=== PATIENT | female | born 1955 | race Caucasian/White ===

== ENCOUNTER 2023-06-13 19:13 | Inpatient (IN) | payer OTHER ==
[2023-06-13 21:10] LABS: #Eosinphils 0.2 10x3/uL (0.0-0.5); #Monocytes 0.4 10x3/uL (0.0-1.1); #Neutrophils 2.7 10x3/uL (1.5-8.4); %Basophils 0.5 % (0.0-2.0); %Eosinophils 3.4 % (0.0-6.0); %Lymphocytes 40.5 % (18.0-47.0); %Monocytes 7.1 % (0.0-10.0); %Neutrophils 48.3 % (40.0-75.0); Hematocrit 30.2 % (34.9-44.5); Hemoglobin 9.3 g/dL (12.0-15.5); Mean Corpuscular HGB CONC 30.8 g/dL (32.0-36.0); Mean Corpuscular Hemoglobin 23.6 pg (27.0-33.0); Mean Corpuscular Volume 76.6 fl (81.6-98.3); Mean Platelet Volume 8.9 fl (7.4-10.4); Platelet Count 313 10x3/uL (150-450); RBC Distribution Width 17.3 % (11.5-14.5); Red Blood Cell (RBC) Count 3.94 10x6/uL (3.90-5.03); White Blood Cell (WBC) Count 5.7 10x3/uL (3.5-10.5)
[2023-06-13 21:16] LABS: ALT (SGPT) 15 U/L (8-55); AST (SGOT) 24 U/L (5-34); Albumin 3.1 g/dL (3.4-4.8); Alkaline Phosphatase 157 U/L (40-110); Anion Gap 13 mmol/L (10-20); BUN (Urea Nitrogen) 6 mg/dL (9.8-20.1); Bilirubin, Total 0.5 mg/dL (0.2-1.2); Calc. Creatinine Clearance 0 mL/min (70-130); Carbon Dioxide 28 mmol/L (23-31); Chloride 104 mmol/L (98-107); Estimated GFR 96; Globulin 3.8 g/dL (2.4-3.5); Glucose 182 mg/dL (80-115); Protein, Total 6.9 g/dL (5.8-8.1); Sodium 142 mmol/L (136-145)
[2023-06-13 21:35] LABS: Potassium 2.5 mmol/L (3.5-5.1)
[2023-06-13] MEDS ORDERED: Magnesium 2 GM/50 ML BAG (IN WATER) ONE (21:50)
[2023-06-13] MEDS ORDERED: Potassium Chloride 20 MEQ TAB ONE (21:51)
[2023-06-13] MEDS ORDERED: NS 0.9% w/ 40 MEQ KCL 1,000 ML IV ONE (22:04)
[2023-06-13 22:11] LABS: Lipase 33 U/L (8-78)
[2023-06-13 22:21] LABS: Magnesium 0.9 mg/dL (1.6-2.6)
[2023-06-13] MEDS ORDERED: Ondansetron ODT 4 MG TAB PO PRN (22:44)
[2023-06-13] MEDS ORDERED: Acetaminophen 650 MG Suppository PR PRN (22:44)
[2023-06-13] MEDS ORDERED: Communication Order-Pharmacy FS ONE (22:44)
[2023-06-13] MEDS ORDERED: Acetaminophen 325 MG TAB PO PRN (22:44)
[2023-06-13] MEDS ORDERED: Ondansetron PF 4 MG/2 ML Vial IVP PRN (22:44)
[2023-06-13] MEDS ORDERED: Glucagon 1 MG/ML KIT IM PRN (23:24)
[2023-06-13] MEDS ORDERED: Dextrose 5% in Water 1,000 ML IV PRN (23:24)
[2023-06-13] MEDS ORDERED: HumaLOG 300 UNITS/3 ML VIAL SC PRN (23:24)
[2023-06-13] MEDS ORDERED: Dextrose 50% Abboject 50 ML SYRINGE SLOW IVP PRN (23:24)
[2023-06-13] MEDS ORDERED: Electrolyte Replacement Protocol 1 EACH FS SCH (23:30)
[2023-06-13] MEDS ORDERED: Potassium Chloride 20 MEQ TAB PO SCH (23:45)
[2023-06-13] MEDS ORDERED: DIFICID 200 MG PO SCH (23:45)
[2023-06-14 03:59] VITALS: BMI 24.5
[2023-06-14] MEDS: Potassium Chloride 20 MEQ in Lactated Ringer's 1,000 ML IV SCH ×3 (04:48→16:35)
[2023-06-14 06:50] LABS: #Eosinphils 0.2 10x3/uL (0.0-0.5); #Monocytes 0.3 10x3/uL (0.0-1.1); #Neutrophils 1.9 10x3/uL (1.5-8.4); %Basophils 0.6 % (0.0-2.0); %Eosinophils 3.7 % (0.0-6.0); %Lymphocytes 48.1 % (18.0-47.0); %Monocytes 6.7 % (0.0-10.0); %Neutrophils 40.5 % (40.0-75.0); Hematocrit 28.3 % (34.9-44.5); Hemoglobin 9.1 g/dL (12.0-15.5); Mean Corpuscular HGB CONC 32.2 g/dL (32.0-36.0); Mean Corpuscular Hemoglobin 24.7 pg (27.0-33.0); Mean Corpuscular Volume 76.9 fl (81.6-98.3); Platelet Count 284 10x3/uL (150-450); RBC Distribution Width 17.7 % (11.5-14.5); Red Blood Cell (RBC) Count 3.68 10x6/uL (3.90-5.03); White Blood Cell (WBC) Count 4.6 10x3/uL (3.5-10.5)
[2023-06-14 07:06] LABS: Anion Gap 14 mmol/L (10-20); BUN (Urea Nitrogen) 5 mg/dL (9.8-20.1); Calc. Creatinine Clearance 101 mL/min (70-130); Calcium 7.8 mg/dL (7.8-10.44); Carbon Dioxide 26 mmol/L (23-31); Chloride 109 mmol/L (98-107); Estimated GFR 101; Glucose 91 mg/dL (80-115); Magnesium 1.2 mg/dL (1.6-2.6); Potassium 3.5 mmol/L (3.5-5.1); Sodium 145 mmol/L (136-145)
[2023-06-14] MEDS ORDERED: Potassium Chloride 20 MEQ TAB PO SCH (08:00)
[2023-06-14] MEDS ORDERED: Famotidine 20 MG TAB PO SCH (09:00)
[2023-06-14] MEDS: FLUoxetine HCl 10 MG CAP PO SCH (09:23)
[2023-06-14] MEDS: glipiZIDE 5 MG TAB PO SCH ×2 (09:23→16:30)
[2023-06-14] MEDS: Enoxaparin 40 MG (0.4 mL) SYRINGE SC SCH (09:24)
[2023-06-14] MEDS: Carvedilol 25 MG TAB PO SCH ×2 (09:24→16:30)
[2023-06-14] MEDS: Magnesium 2 GM/50 ML(in water) 2 GM in Premix 1 BAG IVPB SCH ×2 (09:34→11:00)
[2023-06-14] MEDS: DIFICID 200 MG PO SCH ×2 (09:40→21:09)
[2023-06-14] MEDS ORDERED: traMADol HCl 50 MG TAB PO PRN (09:46)
[2023-06-14] MEDS ORDERED: NIFEdipine XL 30 MG ER.TAB PO PRN (10:45)
[2023-06-14] MEDS: HumaLOG 300 UNITS/3 ML VIAL SC PRN (11:57)
[2023-06-14] MEDS: Dicyclomine 10 MG CAP PO PRN (12:40)
[2023-06-14 12:50] LABS: Phosphorus 2.2 mg/dL (2.3-4.7)
[2023-06-14] MEDS ORDERED: Saccharomyces boulardii 250 MG CAP PO SCH (21:00)
[2023-06-15] MEDS: Potassium Chloride 20 MEQ in Lactated Ringer's 1,000 ML IV SCH (05:59)
[2023-06-15 06:16] LABS: Magnesium 1.2 mg/dL (1.6-2.6)
[2023-06-15 07:02] LABS: ALT (SGPT) 15 U/L (8-55); AST (SGOT) 29 U/L (5-34); Albumin 2.8 g/dL (3.4-4.8); Alkaline Phosphatase 164 U/L (40-110); Anion Gap 13 mmol/L (10-20); BUN (Urea Nitrogen) Less than 4 mg/dL (9.8-20.1); Bilirubin, Total 0.4 mg/dL (0.2-1.2); Calc. Creatinine Clearance 96 mL/min (70-130); Calcium 8.2 mg/dL (7.8-10.44); Carbon Dioxide 26 mmol/L (23-31); Chloride 107 mmol/L (98-107); Estimated GFR 100; Globulin 3.5 g/dL (2.4-3.5); Glucose 131 mg/dL (80-115); Phosphorus 2.6 mg/dL (2.3-4.7); Potassium 4.2 mmol/L (3.5-5.1); Protein, Total 6.3 g/dL (5.8-8.1); Sodium 142 mmol/L (136-145)
[2023-06-15 07:05] LABS: #Eosinphils 0.2 10x3/uL (0.0-0.5); #Monocytes 0.4 10x3/uL (0.0-1.1); #Neutrophils 1.9 10x3/uL (1.5-8.4); %Basophils 0.4 % (0.0-2.0); %Eosinophils 4.6 % (0.0-6.0); %Lymphocytes 48.4 % (18.0-47.0); %Monocytes 7.1 % (0.0-10.0); %Neutrophils 39.1 % (40.0-75.0); Hematocrit 29.9 % (34.9-44.5); Hemoglobin 9.2 g/dL (12.0-15.5); Mean Corpuscular HGB CONC 30.8 g/dL (32.0-36.0); Mean Corpuscular Hemoglobin 23.8 pg (27.0-33.0); Mean Corpuscular Volume 77.3 fl (81.6-98.3); Mean Platelet Volume 9.1 fl (7.4-10.4); Platelet Count 291 10x3/uL (150-450); Red Blood Cell (RBC) Count 3.87 10x6/uL (3.90-5.03)
[2023-06-15] MEDS: glipiZIDE 5 MG TAB PO SCH ×2 (08:16→17:06)
[2023-06-15] MEDS: FLUoxetine HCl 10 MG CAP PO SCH (08:16)
[2023-06-15] MEDS: Carvedilol 25 MG TAB PO SCH ×2 (08:16→17:06)
[2023-06-15] MEDS: Dicyclomine 10 MG CAP PO PRN ×2 (08:16→18:58)
[2023-06-15] MEDS: Magnesium 2 GM/50 ML(in water) 2 GM in Premix 1 BAG IVPB SCH ×2 (08:18→10:18)
[2023-06-15] MEDS: Enoxaparin 40 MG (0.4 mL) SYRINGE SC SCH (08:21)
[2023-06-15] MEDS: DIFICID 200 MG PO SCH (08:24)
[2023-06-15] MEDS ORDERED: NIFEdipine XL 30 MG ER.TAB PO SCH (09:00)
[2023-06-15] MEDS: HumaLOG 300 UNITS/3 ML VIAL SC PRN (11:45)
[2023-06-15 17:45] VITALS: BP 137/73; TEMP 97.8
== END 2023-06-15 20:11 | disposition home or self-care (01) | DRG 372 ==
LOC: CSHERS 19:13 → CSHTELE 22:47
PROVIDERS: ADMIT Family Medicine; ATTEND Internal Medicine
DX: A04.72 Enterocolitis due to Clostridium difficile, not specified as recurrent (principal); E44.0 Moderate protein-calorie malnutrition; E83.42 Hypomagnesemia; E87.6 Hypokalemia; M19.90 Unspecified osteoarthritis, unspecified site; F32.A Depression, unspecified; E11.9 Type 2 diabetes mellitus without complications; E78.5 Hyperlipidemia, unspecified; I10 Essential (primary) hypertension; G47.33 Obstructive sleep apnea (adult) (pediatric); I25.10 Atherosclerotic heart disease of native coronary artery without angina pectoris; E86.0 Dehydration; D64.9 Anemia, unspecified; E83.39 Other disorders of phosphorus metabolism; F41.9 Anxiety disorder, unspecified; Z90.710 Acquired absence of both cervix and uterus; Z98.890 Other specified postprocedural states; Z88.8 Allergy status to other drugs, medicaments and biological substances; Z79.899 Other long term (current) drug therapy; Z90.49 Acquired absence of other specified parts of digestive tract; Z68.24 Body mass index [BMI] 24.0-24.9, adult
CPT/HCPCS: 36415; 36416; 74019; 80048; 80053; 83605; 83690; 83735; 84100; 85025; 93005; J1650; J1815; J3475; J3480; J7120

== ENCOUNTER 2024-02-16 05:29 | Emergency (ER) | payer OTHER | END 2024-02-16 06:00 | disposition home or self-care (01) | LOC: CSHERS 05:29 | DX: L03.114 Cellulitis of left upper limb (principal); E11.9 Type 2 diabetes mellitus without complications; I10 Essential (primary) hypertension; Z79.899 Other long term (current) drug therapy; Z79.84 Long term (current) use of oral hypoglycemic drugs; E78.5 Hyperlipidemia, unspecified | CPT/HCPCS: 99283 ==

== ENCOUNTER 2024-05-07 01:27 | Emergency (ER) | payer OTHER ==
[2024-05-07] MEDS ORDERED: Dexamethasone 10 MG/ML VIAL ONE (02:23)
[2024-05-07 02:32] LABS: #Basophils 0.04 10x3/uL (0.0-0.2); #Eosinophils 0.17 10x3/uL (0.0-0.5); #Monocytes 0.41 10x3/uL (0.0-1.1); #Neutrophils 2.45 10x3/uL (1.5-8.4); %Basophils 0.8 % (0.0-2.0); %Eosinophils 3.5 % (0.0-6.0); %Lymphocytes 36.3 % (18.0-47.0); %Monocytes 8.5 % (0.0-10.0); %Neutrophils 50.5 % (40.0-75.0); Hematocrit 35.1 % (34.9-44.5); Mean Corpuscular HGB CONC 34.2 g/dL (32.0-36.0); Mean Corpuscular Volume 84.8 fL (81.6-98.3); Mean Platelet Volume 9.1 fL (7.4-10.4); Platelet Count 188 10x3/uL (150-450); RBC Distribution Width 14.5 % (11.5-14.5); Red Blood Cell (RBC) Count 4.14 10x6/uL (3.90-5.03); White Blood Cell (WBC) Count 4.9 10x3/uL (3.5-10.5)
[2024-05-07 02:55] LABS: ALT (SGPT) 46 U/L (8-55); AST (SGOT) 49 U/L (5-34); Albumin 3.1 g/dL (3.4-4.8); Alkaline Phosphatase 123 U/L (40-110); Anion Gap 14 mmol/L (10-20); BUN (Urea Nitrogen) 16 mg/dL (9.8-20.1); Bilirubin, Total 0.5 mg/dL (0.2-1.2); Calc. Creatinine Clearance 0 mL/min (70-130); Calcium 9.3 mg/dL (7.8-10.44); Carbon Dioxide 23 mmol/L (23-31); Chloride 97 mmol/L (98-107); Estimated GFR 95; Globulin 4.4 g/dL (2.4-3.5); Glucose 132 mg/dL (80-115); Potassium 3.4 mmol/L (3.5-5.1); Protein, Total 7.5 g/dL (5.8-8.1); Sodium 131 mmol/L (136-145)
== END 2024-05-07 13:56 | disposition home or self-care (01) ==
LOC: CSHERS 01:27
DX: L50.9 Urticaria, unspecified (principal); E11.9 Type 2 diabetes mellitus without complications; I10 Essential (primary) hypertension; Z79.84 Long term (current) use of oral hypoglycemic drugs; Z79.899 Other long term (current) drug therapy
CPT/HCPCS: 80053; 85025; 96372; 99283; J1100; 36415

== ENCOUNTER 2025-04-09 08:29 | Emergency (ER) | payer OTHER | END 2025-04-09 09:13 | disposition home or self-care (01) | LOC: CSHERS 08:29 | DX: B02.9 Zoster without complications (principal); I10 Essential (primary) hypertension; I25.10 Atherosclerotic heart disease of native coronary artery without angina pectoris; E11.9 Type 2 diabetes mellitus without complications | CPT/HCPCS: 99282 ==